=== PATIENT | female | born 1995 | race Caucasian/White ===

== ENCOUNTER 2016-08-15 14:28 | Emergency (ER) | payer OTHER ==
--- NOTE | 2016-08-15 17:11 | ED CLINICAL REPORT ---
Clinical Report - Physicians/Mid Levels [facility] [address] [place] [address] 08/15/2016 14:30 Patient: DL WALTERS Time Seen: 1513; initial patient contact, initial documentation, patient care assumed. Arrived- By private vehicle. Historian- patient. HISTORY OF PRESENT ILLNESS Chief Complaint: NECK PAIN. Modifying factors- worsened by rotation of the body to the right or left or neck flexion. (moving arm). Not relieved by anything. It is described as being severe and in the area of the right side of the cervical spine and right trapezius and radiating to the right arm and elbow. The quality is noted to be "pain". Onset was today and it is still present. No bladder dysfunction, bowel dysfunction, sensory loss or motor loss. Additional history - awoke with R sided neck pain that shoots down R arm, pain in arm is similar to when she had blood clot in it. Patient denies an injury but injury to the head or chest. Similar symptoms previously: Once, milder. Recent medical care: Not recently seen/assessed. REVIEW OF SYSTEMS No fever, difficulty breathing, chest pain or abdominal pain. All systems otherwise negative, except as recorded above. PAST HISTORY See nurses notes. PROBLEMS: DVT - Deep Venous Thrombosis. Myofascial Strain. Immunizations. LNMP - Last Normal Menstrual Period. Nephrolithiasis. Migraine Headache. --15:05 Tenisha Handley, RCodi. SOCIAL HISTORY Never smoker. History of heavy drug use: marijuana. No alcohol use. No recent travel. Is a local resident. FAMILY HISTORY Negative. ADDITIONAL NOTES The nursing notes have been reviewed with agreement regarding the chief complaint, HPI, ROS, PMH and patient medications and allergies. PHYSICAL EXAM Vital Signs: 08/15/2016 15:02 BP: 112/68. HR: 84. RR: 16. O2 saturation: 99%. Temp: 98.5 F. Pain level now: 6/10. Have been reviewed as normal and appear to be correct. Appearance: Alert. No acute distress. HEENT: Normal external inspection. Eyes: Pupils equal, round and reactive to light. ENT: Ears normal. Pharynx normal. Neck: Neck tenderness. Abnormal inspection. Painful ROM. Moderate pain in the neck upon turning the head to the right, turning the head to the left, lifting the head, flexing the neck and extending the neck. Moderate acute decrease in ROM secondary to pain. No muscle spasm in the neck. No vertebral tenderness. Soft tissue tenderness. No lymphadenopathy or meningeal signs. CVS: Normal heart rate and rhythm. Heart sounds normal. Pulses normal. Respiratory: No respiratory distress. Breath sounds normal. Chest nontender. Back: Normal inspection. No tenderness. Painless ROM. Skin: Skin warm and dry. Normal skin color. No rash. Normal skin turgor. Extremities: Extremities exhibit normal ROM. Extremities nontender. Neuro: Oriented X 3. Mood/affect normal. No motor deficit. No sensory deficit. LABS, X-RAYS, AND EKG Note - Tests: (US Doppler RUE verbal report from [facility]). PROGRESS AND PROCEDURES Patient counseled in person regarding the patient's stable condition, test results and diagnosis. 17:09. Differential Diagnosis: Other possible considerations: torticollis, dvt, blood clot, muscle strain, oa. Above considerations are based on history, physical exam and other information. Differential diagnosis was discussed with patient. Disposition: Discharged home in good and improved condition (17:11). Condition: good and stable. CLINICAL IMPRESSION Right-sided torticollis. No spasmodic torticollis, traumatic torticollis or psychogenic torticollis. INSTRUCTIONS Warnings: GENERAL WARNINGS: Return or contact your physician immediately if your condition worsens or changes unexpectedly, if not improving as expected, or if other problems arise. SPECIFICALLY, return if you develop numbness or incontinence of feces (loss of bowel control) or urine (loss of bladder control). Prescription Medications: Ultram 50 mg tablets: take 1-2 orally every 6 hours as needed for pain. Dispense twenty (20). No refills. Substitution is permissible. Follow-up: Follow up with your doctor in about five days as needed. Call for an appointment. Summary of care provided to patient. Understanding of the discharge instructions verbalized by patient. (Electronically signed by Valorie Nolan A.R.N.P. 08/15/2016 22:04)
--- NOTE | 2016-08-15 17:11 | ED NURSING NOTES ---
Clinical Report - Nurses [facility] [place] [address] 08/15/2016 14:30 Patient: DL WALTERS TRIAGE Acuity: LEVEL 3. Chief Complaint: RIGHT UPPER EXTREMITY PAIN. Alert. No acute distress. SEPSIS SCREEN: Sepsis Screen. Negative (no infection suspected/documented). RINA COMA SCORE: [place] Coma Scale: 15- eyes open spontaneously (4); best verbal response- oriented x 4 (5); best motor response- obeys commands (6). --15:08 Tenisha Handley R.N. 15:02 08/15/16. BP: 112/68. HR: 84. RR: 16. O2 saturation: 99%. Temp: 98.5 F (oral). Pain level now: 01/22. --15:08 Tenisha Handley R.N. Weight: 72.5 kg stated. Height/Length: 62 inches Per Patient. BMI: 29.3. --15:06 Tenisha Handley R.N. Medications BusPIRone HCl Oral. --15:04 Tenisha Handley R.N. Xarelto Oral (Tablet 20 mg). --15:04 Tenisha Handley R.N. Medication/allergy information source: the patient. --15:08 Tenisha Handley R.N. Allergies Rolpax. --15:04 Tenisha Handley R.N. History Arrived by private vehicle. Historian: patient. Accompanied by mother. Primary physician (Jayesh). This occurred just prior to arrival. ( Pt reports she was diagnosed with a blood clot in her right arm 3 months ago. She has been taking xarelto since. This am she awoke with new pain in the right side of her neck and in her right arm.). PAST MEDICAL HX: Last normal menstrual period was 1 week ago. SOCIAL HX: Never smoker. History of heavy drug use: marijuana. No alcohol use. FALL RISK ASSESSMENT: Fall risk assessment completed. No fall risk identified. NUTRITIONAL RISK ASSESSMENT: The nutritional risk assessment revealed no deficiencies. FUNCTIONAL ASSESSMENT: Functional assessment: no impairments noted. LEARNING NEEDS ASSESSMENT: The learning needs assessment revealed no barriers. SKIN INTEGRITY ASSESSMENT: Skin integrity risk assessment completed. No skin integrity risk identified. --15:08 Tenisha Handley R.N. PROBLEMS: DVT - Deep Venous Thrombosis. Myofascial Strain. Immunizations. LNMP - Last Normal Menstrual Period. Nephrolithiasis. Migraine Headache. --15:05 Tenisha Handley R.N. Assessment GENERAL / NEURO / PSYCH: Alert. Oriented X 4. Appears in no acute distress. Patient appears calm and cooperative. RESPIRATORY: Respirations not labored. CVS: Capillary refill less than 2 seconds. GI / : Abdomen soft and nontender. SKIN: Mucous membranes are pink. Skin is warm and dry. --15:09 Tenisha Handley R.N. Interventions ID band on patient. To treatment room. --15:08 Tenisha Handley R.N. NURSING PROGRESS NOTES 15:08/15/16. Patient gowned. Two patient identifiers checked. Call light placed in reach. Side rails up x 1. Bed placed in lowest position. Brakes of bed on. Patient ready for evaluation- chart flagged and ED physician notified. --15:09 Tenisha Handley R.N. 15:29 08/15/2016 Hydrocodone-APAP (Hydrocodone-Acetaminophen) PO 5/325 mg Tablets 1 tab given. Allergies verified, confirmed 5 rights and sedative warning given to the patient. --15:44 Tenisha Handley R.N. 16:30 08/15/16. Reassessment after medication administered. She has had no adverse reaction. Overall patient status is improved- she states feels better. GENERAL / NEURO / PSYCH: The patient reports pain is still present but improving. principal technologist at the patient's bedside. --16:30 Tenisha Handley R.N. DISPOSITION / DISCHARGE 17:23 08/15/16. Departure time: 1718. Condition at departure: improved and stable. No learning barriers present. Discharge instructions provided and reviewed with the patient. Reviewed medication(s) side effects, precautions, dosing and course information. Prescription(s) given to the patient. Patient verbalized understanding. Written instructions provided in Pashto. The patient was discharged by the physician social and human services assistant. She was discharged home and accompanied by family. She left the Emergency Department ambulatory and via private vehicle. Family member driving. --17:23 Jane Guillen R.N. 17:20 08/15/16. BP: 106/64. HR: 68. RR: 16. O2 saturation: 96% on room air. Temp: 98.2 F (oral). Pain level now 6/10. --17:23 Jane Guillen R.N. Locked/Released at 08/16/2016 12:22 by Tenisha Handley R.N.
--- NOTE | 2016-08-15 17:11 | ED ORDER SUMMARY ---
..... Patient: DL WALTERS OrderSheet [facility] VisitID: [id number] [place] [address] 21y, F Registration Date/Time: 08/15/2016 ORDER SHEET Weight: 72.5 kg (stated) Allergies: Rolpax GENERAL ORDERS: US Venous Right Urgent (15:27 08/15/2016 HBivens A.R.N.P.) (Ack 15:29 NHouse ER Tech1) (16:38 NHouse ER Tech1) MEDICATION ORDERS: Toradol IM 60 mg (NOW) (15:27 08/15/2016 HBivens A.R.N.P.) (Cancelled: Other15:28 HBivens A.R.N.P.) Hydrocodone-APAP PO 5/325 mg (NOW, HIGH ALERT MEDICATION) (15:28 08/15/2016 HBivens A.R.N.P.) (Ack 15:29 MWinterer R.N.) (15:44 MWinterer R.N.) IV FLUIDS: ORDER SHEET NOTES: [Electronically signed by Valorie NolanR.N.PAnalia (22:04 08/15/2016)] [Electronically signed by Tenisha Handley R.N. (12:22 08/16/2016)] [Electronically locked/signed by Tenisha Handley R.N. (12:22 08/16/2016)]
--- NOTE | 2016-08-15 17:11 | ED CLINICAL REPORT ---
Clinical Report - Physicians/Mid Levels [facility] [address] [place] [address] 08/15/2016 14:30 Patient: DL WALTERS Time Seen: 1513; initial patient contact, initial documentation, patient care assumed. Arrived- By private vehicle. Historian- patient. HISTORY OF PRESENT ILLNESS Chief Complaint: NECK PAIN. Modifying factors- worsened by rotation of the body to the right or left or neck flexion. (moving arm). Not relieved by anything. It is described as being severe and in the area of the right side of the cervical spine and right trapezius and radiating to the right arm and elbow. The quality is noted to be "pain". Onset was today and it is still present. No bladder dysfunction, bowel dysfunction, sensory loss or motor loss. Additional history - awoke with R sided neck pain that shoots down R arm, pain in arm is similar to when she had blood clot in it. Patient denies an injury but injury to the head or chest. Similar symptoms previously: Once, milder. Recent medical care: Not recently seen/assessed. REVIEW OF SYSTEMS No fever, difficulty breathing, chest pain or abdominal pain. All systems otherwise negative, except as recorded above. PAST HISTORY See nurses notes. PROBLEMS: DVT - Deep Venous Thrombosis. Myofascial Strain. Immunizations. LNMP - Last Normal Menstrual Period. Nephrolithiasis. Migraine Headache. --15:05 Tenisha Handley, RCodi. SOCIAL HISTORY Never smoker. History of heavy drug use: marijuana. No alcohol use. No recent travel. Is a local resident. FAMILY HISTORY Negative. ADDITIONAL NOTES The nursing notes have been reviewed with agreement regarding the chief complaint, HPI, ROS, PMH and patient medications and allergies. PHYSICAL EXAM Vital Signs: 08/15/2016 15:02 BP: 112/68. HR: 84. RR: 16. O2 saturation: 99%. Temp: 98.5 F. Pain level now: 6/10. Have been reviewed as normal and appear to be correct. Appearance: Alert. No acute distress. HEENT: Normal external inspection. Eyes: Pupils equal, round and reactive to light. ENT: Ears normal. Pharynx normal. Neck: Neck tenderness. Abnormal inspection. Painful ROM. Moderate pain in the neck upon turning the head to the right, turning the head to the left, lifting the head, flexing the neck and extending the neck. Moderate acute decrease in ROM secondary to pain. No muscle spasm in the neck. No vertebral tenderness. Soft tissue tenderness. No lymphadenopathy or meningeal signs. CVS: Normal heart rate and rhythm. Heart sounds normal. Pulses normal. Respiratory: No respiratory distress. Breath sounds normal. Chest nontender. Back: Normal inspection. No tenderness. Painless ROM. Skin: Skin warm and dry. Normal skin color. No rash. Normal skin turgor. Extremities: Extremities exhibit normal ROM. Extremities nontender. Neuro: Oriented X 3. Mood/affect normal. No motor deficit. No sensory deficit. LABS, X-RAYS, AND EKG Note - Tests: (US Doppler RUE verbal report from [facility] Normal). PROGRESS AND PROCEDURES Patient counseled in person regarding the patient's stable condition, test results and diagnosis. 17:09. Differential Diagnosis: Other possible considerations: torticollis, dvt, blood clot, muscle strain, oa. Above considerations are based on history, physical exam and other information. Differential diagnosis was discussed with patient. Disposition: Discharged home in good and improved condition (17:11). Condition: good and stable. CLINICAL IMPRESSION Right-sided torticollis. No spasmodic torticollis, traumatic torticollis or psychogenic torticollis. INSTRUCTIONS Warnings: GENERAL WARNINGS: Return or contact your physician immediately if your condition worsens or changes unexpectedly, if not improving as expected, or if other problems arise. SPECIFICALLY, return if you develop numbness or incontinence of feces (loss of bowel control) or urine (loss of bladder control). Prescription Medications: Ultram 50 mg tablets: take 1-2 orally every 6 hours as needed for pain. Dispense twenty (20). No refills. Substitution is permissible. Follow-up: Follow up with your doctor in about five days as needed. Call for an appointment. Summary of care provided to patient. Understanding of the discharge instructions verbalized by patient. (Electronically signed by Valorie Nolan A.R.N.P. 08/15/2016 22:04)
--- NOTE | 2016-08-15 17:11 | ED ORDER SUMMARY ---
..... Patient: DL WALTERS OrderSheet [facility] VisitID: [id number] [place] [address] 21y, F Registration Date/Time: 08/15/2016 ORDER SHEET Weight: 72.5 kg (stated) Allergies: Rolpax GENERAL ORDERS: US Venous Right Urgent (15:27 08/15/2016 HBivens A.R.N.P.) (Ack 15:29 NHouse ER Tech1) (16:38 NHouse ER Tech1) MEDICATION ORDERS: Toradol IM 60 mg (NOW) (15:27 08/15/2016 HBivens A.R.N.P.) (Cancelled: Other15:28 HBivens A.R.N.P.) Hydrocodone-APAP PO 5/325 mg (NOW, HIGH ALERT MEDICATION) (15:28 08/15/2016 HBivens A.R.N.P.) (Ack 15:29 MWinterer R.N.) (15:44 MWinterer R.N.) IV FLUIDS: ORDER SHEET NOTES: [Electronically signed by Valorie NolanR.N.PAnalia (22:04 08/15/2016)] [Electronically signed by Tenisha Handley R.N. (12:22 08/16/2016)] [Electronically locked/signed by Tenisha Handley R.N. (12:22 08/16/2016)]
--- NOTE | 2016-08-15 17:11 | ED NURSING NOTES ---
Clinical Report - Nurses [facility] [place] [address] 08/15/2016 14:30 Patient: DL WALTERS TRIAGE Acuity: LEVEL 3. Chief Complaint: RIGHT UPPER EXTREMITY PAIN. Alert. No acute distress. SEPSIS SCREEN: Sepsis Screen. Negative (no infection suspected/documented). RINA COMA SCORE: [place] Coma Scale: 15- eyes open spontaneously (4); best verbal response- oriented x 4 (5); best motor response- obeys commands (6). --15:08 Tenisha Handley R.N. 15:02 08/15/16. BP: 112/68. HR: 84. RR: 16. O2 saturation: 99%. Temp: 98.5 F (oral). Pain level now: 01/22. --15:08 Tenisha Handley R.N. Weight: 72.5 kg stated. Height/Length: 62 inches Per Patient. BMI: 29.3. --15:06 Tenisha Handley R.N. Medications BusPIRone HCl Oral. --15:04 Tenisha Handley R.N. Xarelto Oral (Tablet 20 mg). --15:04 Tenisha Handley R.N. Medication/allergy information source: the patient. --15:08 Tenisha Handley R.N. Allergies Rolpax. --15:04 Tenisha Handley R.N. History Arrived by private vehicle. Historian: patient. Accompanied by mother. Primary physician (Jayesh). This occurred just prior to arrival. ( Pt reports she was diagnosed with a blood clot in her right arm 3 months ago. She has been taking xarelto since. This am she awoke with new pain in the right side of her neck and in her right arm.). PAST MEDICAL HX: Last normal menstrual period was 1 week ago. SOCIAL HX: Never smoker. History of heavy drug use: marijuana. No alcohol use. FALL RISK ASSESSMENT: Fall risk assessment completed. No fall risk identified. NUTRITIONAL RISK ASSESSMENT: The nutritional risk assessment revealed no deficiencies. FUNCTIONAL ASSESSMENT: Functional assessment: no impairments noted. LEARNING NEEDS ASSESSMENT: The learning needs assessment revealed no barriers. SKIN INTEGRITY ASSESSMENT: Skin integrity risk assessment completed. No skin integrity risk identified. --15:08 Tenisha Handley R.N. PROBLEMS: DVT - Deep Venous Thrombosis. Myofascial Strain. Immunizations. LNMP - Last Normal Menstrual Period. Nephrolithiasis. Migraine Headache. --15:05 Tenisha Handley R.N. Assessment GENERAL / NEURO / PSYCH: Alert. Oriented X 4. Appears in no acute distress. Patient appears calm and cooperative. RESPIRATORY: Respirations not labored. CVS: Capillary refill less than 2 seconds. GI / : Abdomen soft and nontender. SKIN: Mucous membranes are pink. Skin is warm and dry. --15:09 Tenisha Handley R.N. Interventions ID band on patient. To treatment room. --15:08 Tenisha Handley R.N. NURSING PROGRESS NOTES 15:08/15/16. Patient gowned. Two patient identifiers checked. Call light placed in reach. Side rails up x 1. Bed placed in lowest position. Brakes of bed on. Patient ready for evaluation- chart flagged and ED physician notified. --15:09 Tenisha Handley R.N. 15:29 08/15/2016 Hydrocodone-APAP (Hydrocodone-Acetaminophen) PO 5/325 mg Tablets 1 tab given. Allergies verified, confirmed 5 rights and sedative warning given to the patient. --15:44 Tenisha Handley R.N. 16:30 08/15/16. Reassessment after medication administered. She has had no adverse reaction. Overall patient status is improved- she states feels better. GENERAL / NEURO / PSYCH: The patient reports pain is still present but improving. registered vascular technologist (rvt) at the patient's bedside. --16:30 Tenisha Handley R.N. DISPOSITION / DISCHARGE 17:23 08/15/16. Departure time: 1718. Condition at departure: improved and stable. No learning barriers present. Discharge instructions provided and reviewed with the patient. Reviewed medication(s) side effects, precautions, dosing and course information. Prescription(s) given to the patient. Patient verbalized understanding. Written instructions provided in Greek. The patient was discharged by the physician human resources assistant. She was discharged home and accompanied by family. She left the Emergency Department ambulatory and via private vehicle. Family member driving. --17:23 Jane Guillen R.N. 17:20 08/15/16. BP: 106/64. HR: 68. RR: 16. O2 saturation: 96% on room air. Temp: 98.2 F (oral). Pain level now 6/10. --17:23 Jane Guillen R.N. Locked/Released at 08/16/2016 12:22 by Tenisha Handley R.N.
--- NOTE | 2016-08-15 19:11 | DIAGNOSTIC IMAGING REPORT ---
PROCEDURE: US VENOUS - RIGHT EXT INDICATION: Right upper extremity and neck and shoulder pain. Recent history of deep vein thrombosis (basilic vein). TECHNIQUE: Duplex sonography of the deep and superficial venous system in the right upper extremity was performed. Compression and augmentation techniques were used. COMPARISON: Comparison made to venous ultrasound right upper extremity on 05/18/2016. FINDINGS: The deep and superficial venous system of the right upper extremity is within normal limits, there is no evidence of deep vein thrombosis or superficial thrombophlebitis. There has been interval resolution of thrombosis in the right basilic vein. IMPRESSION: 1. Negative venous ultrasound of the right upper extremities resolution of prior distal vein thrombosis.
--- NOTE | 2016-08-16 12:22 | ED DISCHARGE INSTRUCTIONS ---
Patient: DL WALTERS General Instructions [facility] VisitID: [id number] [place] [address] 21y, F Registration Date/Time: 08/15/2016 Right-sided torticollis. No spasmodic torticollis, traumatic torticollis or psychogenic torticollis. INSTRUCTIONS Warnings: GENERAL WARNINGS: Return or contact your physician immediately if your condition worsens or changes unexpectedly, if not improving as expected, or if other problems arise. SPECIFICALLY, return if you develop numbness or incontinence of feces (loss of bowel control) or urine (loss of bladder control). Prescription Medications: Ultram 50 mg tablets: take 1-2 orally every 6 hours as needed for pain. Dispense twenty (20). No refills. Substitution is permissible. Follow-up: Follow up with your doctor in about five days as needed. Call for an appointment. Summary of care provided to patient. Understanding of the discharge instructions verbalized by patient. ADDITIONAL INFORMATION Neck Pain [No Trauma] There are several possible causes of neck pain without injury: You can get a minor ligament sprain or muscle strain from a sudden minor neck movement. Sleeping with your neck in an awkward position can also cause this. Some persons respond to emotional stress by tensing the muscles of their neck, shoulders and upper back. Chronic spasm in these muscles can cause neck pain and sometimes headaches. Gradualwear and tearof the joints in the spine can cause degenerative arthritis.This can be a source of occasional or chronic neck pain. With aging or repeated small injuries to the neck, the spinal disks (the cushions between each spinal bone) may bulge and put pressure on a nearby spinal nerve. This causes tingling, pain or numbness spreading from the neck to the shoulder, arm or hand on one side. Acute neck pain usually gets better in one to two weeks. Neck pain related to disk disease, arthritis in the spinal joints or spinal stenosis (narrowing of the spinal canal) can become chronic and last for months or years. Unless you had a forceful physical injury (for example, a car accident or fall), X-rays are usually not ordered for the initial evaluation of neck pain. If pain continues and does not respond to medical treatment, x-rays and other tests may be performed at a later time. Home Care: Rest and relax the muscles. Use a comfortable pillow that supports the head and keeps the spine in a neutral position. The position of the head should not be tilted forward or backward. A rolled up towel may help for a custom fit. Some persons find relief with heat (hot shower, hot bath or heating pad) and massage, while others prefer cold packs (crushed or cubed ice in a plastic bag, wrapped in a towel) . Try both and use the method that feels best for 20 minutes several times a day. You may use acetaminophen (Tylenol) or ibuprofen (Motrin, Advil) to control pain, unless another medicine was prescribed. [ NOTE : If you have chronic liver or kidney disease or ever had a stomach ulcer or GI bleeding, talk with your doctor before using these medicines.] Follow Up with your physician or this facility if your symptoms do not show signs of improvement after one week. Physical therapy or further tests may be needed. [NOTE: A radiologist will review any X-rays or CT scans that were taken. We will notify you of any new findings that may affect your care.] Get Prompt Medical Attention if any of the following occur: Pain becomes worse or spreads into one or both arms Weakness or numbness in one or both arms Increasing headache Neck swelling, difficulty or painful swallowing Fever of 100.4F (38C) or higher, or as directed by your healthcare provider Torticollis [Child] Acute spasmodic torticollis is a condition of painful muscle spasm in the neck. It usually occurs in children and causes the child to hold its head to one side because it hurts too much to move from that position. This usually is a result of sleeping with the neck in a strained position. The presence of a viral cold may also contribute to this problem. Torticollis usually goes away after a few days. Home Care: Apply heat to the neck muscles with a heating pad or using a hot tub or hot shower. This will help relax the muscles. Gentle massage of the muscles will also help. Support the head/neck with small pillows or rolled up towels when lying down. If a neck brace was given, keep this on all the time until symptoms improve. You may remove it for bathing or applying heat or massage. Use acetaminophen (Tylenol) for fever, fussiness or discomfort. In infants over six months of age, you may use ibuprofen (Children's Motrin) instead of Tylenol. [NOTE: If your child has chronic liver or kidney disease or ever had a stomach ulcer or GI bleeding, talk with your doctor before using these medicines. Aspirin should never be used in anyone under 18 years of age who is ill with a fever. It may cause severe liver damage.] No school or sports until symptoms are all better. Follow Up with your doctor or as advised by our staff, if symptoms are not improving over the next one to two days. Get Prompt Medical Attention if any of the following occur: Increasing neck pain No relief with the medicines prescribed Weakness, numbness or tingling in the arms or legs Trouble swallowing or breathing Loss of control of the bladder or bowels Fever of 100.4F (38C) oral or 101.4F (38.5C) rectal or higher that does not get better with medication Tramadol Hydrochloride Oral tablet What is this medicine? TRAMADOL (TRA ma dole) is a pain reliever. It is used to treat moderate to severe pain in adults. How should I use this medicine? Take this medicine by mouth with a full glass of water. Follow the directions on the prescription label. If the medicine upsets your stomach, take it with food or milk. Do not take more medicine than you are told to take. Talk to your mineral engineer regarding the use of this medicine in children. Special care may be needed. What side effects may I notice from receiving this medicine? Side effects that you should report to your doctor or health patient care secretary as soon as possible: allergic reactions like skin rash, itching or hives, swelling of the face, lips, or tongue breathing difficulties, wheezing confusion itching light headedness or fainting spells redness, blistering, peeling or loosening of the skin, including inside the mouth seizures Side effects that usually do not require medical attention (report to your doctor or health patient care secretary if they continue or are bothersome): constipation dizziness drowsiness headache nausea, vomiting What may interact with this medicine? Do not take this medicine with any of the following medications: MAOIs like Carbex, Eldepryl, Marplan, Nardil, and Parnate This medicine may also interact with the following medications: alcohol or medicines that contain alcohol antihistamines benzodiazepines bupropion carbamazepine or oxcarbazepine clozapine cyclobenzaprine digoxin furazolidone linezolid medicines for depression, anxiety, or psychotic disturbances medicines for migraine headache like almotriptan, eletriptan, frovatriptan, naratriptan, rizatriptan, sumatriptan, zolmitriptan medicines for pain like pentazocine, buprenorphine, butorphanol, meperidine, nalbuphine, and propoxyphene medicines for sleep muscle relaxants naltrexone phenobarbital phenothiazines like perphenazine, thioridazine, chlorpromazine, mesoridazine, fluphenazine, prochlorperazine, promazine, and trifluoperazine procarbazine warfarin What if I miss a dose? If you miss a dose, take it as soon as you can. If it is almost time for your next dose, take only that dose. Do not take double or extra doses. Where should I keep my medicine? Keep out of the reach of children. Store at room temperature between 15 and 30 degrees C (59 and 86 degrees F). Keep container tightly closed. Throw away any unused medicine after the expiration date. What should I tell my health care provider before I take this medicine? They need to know if you have any of these conditions: brain tumor depression drug abuse or addiction head injury if you frequently drink alcohol containing drinks kidney disease or trouble passing urine liver disease lung disease, asthma, or breathing problems seizures or epilepsy suicidal thoughts, plans, or attempt; a previous suicide attempt by you or a family member an unusual or allergic reaction to tramadol, codeine, other medicines, foods, dyes, or preservatives or trying to get breast-feeding What should I watch for while using this medicine? Tell your doctor or health patient care secretary if your pain does not go away, if it gets worse, or if you have new or a different type of pain. You may develop tolerance to the medicine. Tolerance means that you will need a higher dose of the medicine for pain relief. Tolerance is normal and is expected if you take this medicine for a long time. Do not suddenly stop taking your medicine because you may develop a severe reaction. Your body becomes used to the medicine. This does NOT mean you are addicted. Addiction is a behavior related to getting and using a drug for a non-medical reason. If you have pain, you have a medical reason to take pain medicine. Your doctor will tell you how much medicine to take. If your doctor wants you to stop the medicine, the dose will be slowly lowered over time to avoid any side effects. You may get drowsy or dizzy. Do not drive, use machinery, or do anything that needs mental alertness until you know how this medicine affects you. Do not stand or sit up quickly, especially if you are an older patient. This reduces the risk of dizzy or fainting spells. Alcohol can increase or decrease the effects of this medicine. Avoid alcoholic drinks. You may have constipation. Try to have a bowel movement at least every 2 to 3 days. If you do not have a bowel movement for 3 days, call your doctor or health patient care secretary. Your mouth may get dry. Chewing sugarless gum or sucking hard candy, and drinking plenty of water may help. Contact your doctor if the problem does not go away or is severe. You have been given the following additional information: Neck Pain, No Trauma Torticollis (Child) Tramadol Hydrochloride Oral tablet (Electronically signed by Valorie Nolan A.R.N.P. 08/15/2016 22:04)
--- NOTE | 2016-08-16 12:22 | ED MAR SUMMARY ---
..... Medication Administration Record [facility] [address] [place] [address] Patient: DL WALTERS Visit ID: [id number] 21y, F Weight: 72.5 kg Height/Length: 62 in BMI: 29.3 ALLERGIES: Rolpax Given 15:29 08/15/2016 Tenisha Handley R.N. Medication Administered: HYDROCODONE-APAP [PO] (HYDROCODONE-ACETAMINOPHEN), Dose: 1 tab 5/325 mg Tablets PO. Medication Ordered: Hydrocodone-APAP PO 5/325 mg (NOW, HIGH ALERT MEDICATION).
--- NOTE | 2016-08-16 12:22 | ED MED RECONCILIATION SUMMARY ---
Patient: DL WALTERS Medication Reconciliation Report [facility] VisitID: [id number] [address] [place] [address] 21y, F Registration Date/Time: 08/15/2016 Weight: 72.5 kg Height/Length: 62 in. BMI: 29.3 ALLERGIES: Rolpax The patient's Home Medications are listed below: THE FOLLOWING MEDICATIONS NEED TO BE RECONCILED: BusPIRone HCl Oral Xarelto Oral (20 mg) The source(s) of the original Home Medication information: patient The following Medications were given to the patient in the Emergency Department: Hydrocodone-APAP [PO] PO 1 tab, administered: 08/15/2016 3:29:00 PM The following Medications were prescribed to the patient: Ultram 50 mg tablets: take 1-2 orally every 6 hours as needed for pain. Dispense twenty (20). No refills. Substitution is permissible. -- Valorie Nolan A.R.N.P.
--- NOTE | 2016-08-16 12:22 | ED MAR SUMMARY ---
..... Medication Administration Record [facility] [address] [place] [address] Patient: DL WALTERS Visit ID: [id number] 21y, F Weight: 72.5 kg Height/Length: 62 in BMI: 29.3 ALLERGIES: Rolpax Given 15:29 08/15/2016 Tenisha Handley R.N. Medication Administered: HYDROCODONE-APAP [PO] (HYDROCODONE-ACETAMINOPHEN), Dose: 1 tab 5/325 mg Tablets PO. Medication Ordered: Hydrocodone-APAP PO 5/325 mg (NOW, HIGH ALERT MEDICATION).
--- NOTE | 2016-08-16 12:22 | ED MED RECONCILIATION SUMMARY ---
Patient: DL WALTERS Medication Reconciliation Report [facility] VisitID: [id number] [address] [place] [address] 21y, F Registration Date/Time: 08/15/2016 Weight: 72.5 kg Height/Length: 62 in. BMI: 29.3 ALLERGIES: Rolpax The patient's Home Medications are listed below: THE FOLLOWING MEDICATIONS NEED TO BE RECONCILED: BusPIRone HCl Oral Xarelto Oral (20 mg) The source(s) of the original Home Medication information: patient The following Medications were given to the patient in the Emergency Department: Hydrocodone-APAP [PO] PO 1 tab, administered: 08/15/2016 3:29:00 PM The following Medications were prescribed to the patient: Ultram 50 mg tablets: take 1-2 orally every 6 hours as needed for pain. Dispense twenty (20). No refills. Substitution is permissible. -- Valorie Nolan A.R.N.P.
== END 2016-08-15 17:18 | disposition home or self-care (01) ==
LOC: ED SRH 14:28
DX: M43.6 Torticollis (principal); Z88.8 Allergy status to other drugs, medicaments and biological substances